=== PATIENT | male | born 1965 | race Caucasian/White ===

== ENCOUNTER 2020-04-14 12:09 | Emergency (ER) | payer BC, OTHER ==
[~2020-04-14] VITALS: Ht 188 cm; Wt 99.8 kg
--- NOTE | ~2020-04-14 | EKG ---
[facility] [employer] [facility] [place] [address] ELECTROCARDIOGRAM REPORT Name: ZHANG PIMENTEL Room #: NICO Maurer#: [id number] Admission: 04/14/20 Attend Phys: Discharge: 04/14/20 Date of : 65 Report #: [id number] [facility] ED Test Date: 2020-04-14 Test Time: 13:10:39 Pat Name: ZHANG PIMENTEL Department: Room: Gender: M Human Resource Assistant: OTILIO : 1965 Requested By: Duncan Lopez Order Number: [id number] MD: Measurements Intervals Schriever Rate: 70 P: -18 NJ: 156 QRS: -25 QRSD: 153 T: -16 QT: 446 QTc: 482 Interpretive Statements Sinus rhythm Right bundle branch block Probable left ventricular hypertrophy Borderline prolonged QT interval No previous ECG available for comparison [email or web address] By: 1310 1310 Barry Reddy MD /EPI
[2020-04-14 13:08] LABS: ABSOLUTE NEUTROPHILS 4.5 thou/uL (1.4-8.2); BASOPHILS 0.4 % (0.0-2.0); EOSINOPHILS 1.9 % (0.0-3.0); HEMATOCRIT 46.1 % (42.0-52.0); HEMOGLOBIN 15.7 gm/dL (14.0-18.0); LYMPHOCYTES 18.9 % (24.0-44.0); MCH 30.7 pg (26.0-34.0); MCV 90.4 fL (80.0-100.0); MONOCYTES 9.2 % (1.0-8.0); PLATELET COUNT 287 thou/uL (150-400); POLYS 69.6 % (36.0-66.0); RDW 14.2 % (10.5-14.5); WBC 6.4 thou/uL (4.0-11.0)
[2020-04-14 13:22] LABS: ANION GAP 10 mmol/L (7-16); BUN 18 mg/dL (7-18); CALCIUM 9.1 mg/dL (8.5-10.1); CHLORIDE 104 mmol/L (98-107); CO2 27 mmol/L (21-32); CREATININE 1.1 mg/dL (0.7-1.3); GLUCOSE 82 mg/dL (74-106); POTASSIUM 4.3 mmol/L (3.5-5.1); SODIUM 141 mmol/L (136-145)
[2020-04-14 13:31] LABS: TROPONIN-I <0.06 ng/mL (<0.06)
[2020-04-14 15:41] VITALS: BP 138/90
== END 2020-04-14 15:42 | disposition home or self-care (01) ==
LOC: ER 12:09
PROVIDERS: Nurse Practitioner
DX: H53.8 Other visual disturbances (principal); R06.4 Hyperventilation; R42 Dizziness and giddiness; Z85.46 Personal history of malignant neoplasm of prostate